=== PATIENT | male | born 1940 | race Caucasian/White ===

== ENCOUNTER → 2016-09-12 | Outpatient (CLI) | payer MEDICARE ==
[2016-09-12 16:11] LABS: Blood Urea Nitrogen 19 mg/dL (9-20); Non-African American GFR(MDRD) >60 (>60 ml/min/1.73 sqM)
== END | disposition home or self-care (01) ==
LOC: LABWHC1 15:44
PROVIDERS: ATTEND Psychiatry & Neurology Pain Medicine
DX: G25.0 Essential tremor (principal)
CPT/HCPCS: 36415; 82565; 84520

== ENCOUNTER → 2016-09-16 | Outpatient (CLI) | payer MEDICARE ==
--- NOTE | 2016-09-16 07:36 | MR ---
EXAMINATION TYPE: MR brain wo/w con DATE OF EXAM: 09/16/2016 COMPARISON: NONE HISTORY: essential tremors CONTRAST: Performed utilizing 15 mL intravenous MultiHance gadolinium contrast. TECHNIQUE: Multiplanar, multiecho imaging on a 3.0 Nancy magnet is performed through the brain. Stud y is performed within 24 hours of arrival to the hospital. The craniovertebral junction is normal. The pituitary is normal. Diffusion-weighted imaging is performed. No abnormal hyperintensity is present to suggest an acute i ntracranial infarct or acute ischemic change. There are confluent periventricular white matter changes. Additional multiple punctate white matter c hanges are within the centrum semiovale. Findings are nonspecific. Differential could include but is not limited to microvascular ischemic change, Lyme disease, multiple sclerosis, vasculitis. Ventricles and sulci are appropriate for the patient age. There is tortuosity left vertebral artery. Normal vascular flow voids are within the intracranial cer ebral vasculature. Temporal lobes are symmetrical. IMPRESSIONS: 1. Confluent periventricular white matter changes, most likely on the basis of chronic white matter i schemic change.
== END | disposition home or self-care (01) ==
LOC: RADMRIMAIN 06:35
PROVIDERS: ATTEND Psychiatry & Neurology Pain Medicine
DX: R90.89 Other abnormal findings on diagnostic imaging of central nervous system (principal)
CPT/HCPCS: 70553; A9577

== ENCOUNTER → 2017-10-16 | Outpatient (CLI) | payer MEDICARE ==
--- NOTE | 2017-10-17 07:13 | US ---
EXAMINATION TYPE: US carotid duplex BILAT DATE OF EXAM: 10/16/2017 COMPARISON: NONE CLINICAL HISTORY: I65.29Occlusion and stenosis of unspecified caroti. No hx of TIA, HTN- controlled. High cholesterol. EXAM MEASUREMENTS: RIGHT: Peak Systolic Velocity (PSV) cm/sec ----- Right CCA: 87.7 ----- Right ICA: 77.0 ----- Right ECA: 107.4 ICA/CCA ratio: 0.9 RIGHT: End Diastole cm/sec ----- Right CCA: 24.9 ----- Right ICA: 21.9 ----- Right ECA: 14.1 LEFT: Peak Systolic Velocity (PSV) cm/sec ----- Left CCA: 88.8 ----- Left ICA: 69.8 ----- Left ECA: 64.5 ICA/CCA ratio: 0.8 LEFT: End Diastole cm/sec ----- Left CCA: 22.7 ----- Left ICA: 23.5 ----- Left ECA: 10.4 VERTEBRALS (direction of flow): Right Vertebral: Antegrade Left Vertebral: Antegrade Rhythm: Normal No elevated velocities or significant stenosis. Plaque seen in bilateral bulbs. Bilateral wall thic kening. IMPRESSION: Mild degree of grayscale atheromatous plaquing with no sonographically evident hemodynam ically significant stenosis within either visualized carotid arterial system.
== END | disposition home or self-care (01) ==
LOC: RADUSWWP 15:37
PROVIDERS: ATTEND Family Medicine
DX: I65.23 Occlusion and stenosis of bilateral carotid arteries (principal)
CPT/HCPCS: 93880

== ENCOUNTER → 2019-04-13 | Outpatient (CLI) | payer MEDICARE ==
[2019-04-13 12:09] LABS: African American GFR (CKD) >90 (>60 ml/min/1.73 sqM); Blood Urea Nitrogen 28 mg/dL (9-20); Non-African American GFR(CKD) 82 (>60 ml/min/1.73 sqM)
--- NOTE | 2019-04-13 13:42 | CT ---
EXAMINATION TYPE: CT abdomen pelvis w con DATE OF EXAM: 04/13/2019 COMPARISON: None HISTORY: Prostate cancer CT DLP: 934.7 mGycm Automated exposure control for dose reduction was used. CONTRAST: CT scan of the abdomen pelvis is performed with IV Contrast, patient injected with 100 mL of Isovue 3 00. FINDINGS- LUNG BASES-interlobular septal thickening suggestive of chronic interstitial lung disease. Pleural th ickening and calcification suggestive of pleural plaques and asbestos related disease. Heart is promi nent in size. Coronary artery calcifications noted.. LIVER/GB-liver is homogeneous. Postcholecystectomy clips are noted.. PANCREAS- No gross abnormality is seen. SPLEEN- No gross abnormality is seen. ADRENALS- No gross abnormality is seen. KIDNEYS/BLADDER-bilateral parapelvic renal cysts are seen with no hydronephrosis. Suspect there are 2 lower pole 3 mm nonobstructing left renal calculi.. BOWEL-bowel gas pattern nonspecific with no obstruction.. LYMPH NODES- No greater than 1cm abdominal or pelvic lymph nodes areappreciated. OSSEOUS STRUCTURES-hypertrophic and degenerative changes of the vertebral column. Arthropathy of the hips with benign-appearing cystic change involving the left hip. Postsurgical changes involving the l umbar spine. OTHER- prostate gland is enlarged and demonstrates calcifications. Atherosclerotic changes of the ao rta with localized ectasia just above the bifurcation measuring 2.6 cm. Bilateral fat-containing ingu inal hernias IMPRESSION- 1. Prostate appears mildly prominent with calcifications. No pathologic adenopathy or diagnostic evid ence to suggest metastases. 2. Nonobstructing lower pole left renal calculus. 3. Findings are compatible with asbestos related disease. 4. Dense coronary artery calcification and cardiomegaly
--- NOTE | 2019-04-14 08:43 | NM ---
"EXAMINATION TYPE: NM bone scan whole body DATE OF EXAM: 04/13/2019 COMPARISON: CT 04/13/2019 HISTORY: Prostate carcinoma Delayed whole-body scanning was performed following the injection of 23.9 mCi Tc 99m MDP. Images acq uired 3 hours post injection. FINDINGS: There is uptake along the lumbar spine which correlates with patient's postop change and degenerative disc disease. Uptake within the hands, wrists, elbows, shoulders, knees, ankles, feet, cervical spin e and sternoclavicular joints is likely degenerative. Soft tissue uptake is normal. No abnormal incre ased or decreased uptake to suggest metastatic disease. The uptake seen at the L1-2 level is intense and may be due to extensive hypertrophic changes seen at this level although there is some endplate irregularity noted on sagittal image [address] scan. D ifficult to exclude discitis. IMPRESSION: Metastatic disease is not evident. Correlate to exclude infection, discitis lumbar spine. A Yellow level critical message alert has been initiated for Tobias Wolfe MD via the [employer] | Critical Results System on 04/14/2019 8:40 AM. This message alert has been sent to [employer] via the preferences provided by the clinician for the receipt of Radiology Critical Findings. [employer] ID [id number]."
== END | disposition home or self-care (01) ==
LOC: RADNMMAIN 11:19
PROVIDERS: ATTEND Urology
DX: N20.0 Calculus of kidney (principal); N42.89 Other specified disorders of prostate; C61 Malignant neoplasm of prostate
CPT/HCPCS: 74177; 82565; 84520; 36415; 78306; A9503; Q9967 ×2

== ENCOUNTER 2019-05-31 09:26 | Day surgery (SDC) | payer MEDICARE ==
[2019-05-28 08:14] VITALS: BMI 26.6
--- NOTE | 2019-05-28 15:00 | P.HPIHPCON ---
History of Present Illness H&P Date: 05/28/19 Chief Complaint: prostate cancer Mr. Dean is 78 yo male with hx of prostate cancer. He elected to proceed with radiation therapy. He elected to proceed with SpaceOR placement. I discussed with risk of bleeding and infection. Also discussed risk of rectal and prostate injury. I discussed with him the risk from anesthesia which includes but not limited to heart attack, stroke, blood clots and even loss of life. He understood all the risk and agreed to proceed Consent for Procedure: I have explained the operation/procedure to the patient, including the risks, benefits, side effects, alternative therapies (including not receiving the proposed treatment or service), the likelihood of the patient achieving his/her goals, and potential recuperation problems for the procedure/sedation/analgesia, as well as any blood products, if indicated. I also explained to the patient the risks, benefits and side effects of the alternatives, as well as the risks related to not receiving the proposed procedure, care, treatment, or services. Past Medical History Past Medical History: GERD/Reflux, Hyperlipidemia, Hypertension Additional Past Medical History / Comment(s): skin cancer chest & back, squamous cell. prostate cancer, Hand tremors. History of Any Multi-Drug Resistant Organisms: None Reported Past Surgical History: Back Surgery, Cholecystectomy, Orthopedic Surgery, Tonsillectomy Additional Past Surgical History / Comment(s): back surgery lower back fusion, rt shoulder sx, colonoscopy, ankle sx, bunionectomy Past Anesthesia/Blood Transfusion Reactions: No Reported Reaction Smoking Status: Former smoker - Past Family History Father Family Medical History: Deep Vein Thrombosis (DVT) Brother(s) Family Medical History: Cancer, Deep Vein Thrombosis (DVT) Additional Family Medical History / Comment(s): prostate, lung Sister(s) Family Medical History: Cancer Additional Family Medical History / Comment(s): breast Medications and Allergies Home Medications Medication Instructions Recorded Confirmed Type Aspirin 81 mg PO DAILY 11/28/14 05/28/19 History Benazepril/Hydrochlorothiazide 1 each PO QAM 11/28/14 05/28/19 History [Benazepril-Hctz 20-25 mg Tab] Fenofibrate Nanocrystallized 145 mg PO QAM 11/28/14 05/28/19 History [Tricor] Omeprazole [PriLOSEC] 20 mg PO DAILY 11/28/14 05/28/19 History Multivitamins, Thera [Multivitamin 1 tab PO DAILY 10/21/18 05/28/19 History (formulary)] Primidone [Mysoline] 100 mg PO TID 10/21/18 05/28/19 History Brimonidine Tartrate/Timolol 1 drop LEFT EYE HS 05/28/19 05/28/19 History [Combigan 0.2%-0.5% Eye Drops] Megestrol Acetate 20 mg PO DAILY 05/28/19 05/28/19 History Tamsulosin [Flomax] 0.4 mg PO DAILY 05/28/19 05/28/19 History Allergies Allergy/AdvReac Type Severity Reaction Status Date / Time No Known Allergies Allergy Verified 05/28/19 08:04 Surgical - Exam - General well developed, well nourished, no distress - Respiratory normal expansion, normal respiratory effort - Abdomen Abdomen: soft, non tender, no distended - Psychiatric oriented to time, oriented to person, oriented to place, speech is normal Assessment and Plan Assessment: 78 yo male with hx of prostate cancer, he elected to proceed with SpaceOr placement prior to starting radiation Plan: OR for SpaceOR placement
[~2019-05-31 09:26] MED LIST: DEXAMETHASONE SOD PHOSPHATE 10 MG/ML 1 ML VIAL IV ONE; LACTATED RINGERS 1,000 ML IV SCH; MIDAZOLAM 2 MG/2 ML VIAL IV PRN; ONDANSETRON 4 MG/2 ML VIAL IVP ONE
[2019-05-31 10:00] VITALS: RESP 16; TEMP 97
[2019-05-31] MEDS ORDERED: SUCCINYLCHOLINE CHLORIDE 100 MG/5 ML SYR IV ONE (10:20)
[2019-05-31] MEDS ORDERED: ePHEDrine SULFATE/0.9% NACL/PF 50 MG/5 ML SYRINGE IV ONE (10:20)
[2019-05-31] MEDS ORDERED: MIDAZOLAM 2 MG/2 ML VIAL ONE (10:20)
[2019-05-31] MEDS ORDERED: LIDOCAINE 1% INJ 10MG/ML (20 ML MDV) ONE (10:20)
[2019-05-31] MEDS ORDERED: ROCURONIUM BROMIDE 10 MG/ML 5 ML VIAL IV ONE (10:20)
[2019-05-31] MEDS ORDERED: PROPOFOL 10 MG/ML 20 ML VIAL IV ONE (10:20)
[2019-05-31] MEDS ORDERED: fentaNYL (PF) 50 MCG/ML 2 ML AMP ONE (10:20)
[2019-05-31] MEDS ORDERED: LIDOCAINE 2% INJ 20 MG/ML SQ ONE (10:37)
--- NOTE | 2019-05-31 11:14 | P.OP ---
Date of Procedure: 05/31/19 Preoperative Diagnosis: prostate cancer Postoperative Diagnosis: same Procedure(s) Performed: Transrectal ultrasound, SpaceOR placement Implants: SpaceOR gel Surgeon: Robert Garza Pathology: none sent Condition: stable Disposition: PACU Indications for Procedure: Mr. Dean is 78 yo male with hx of prostate cancer. He elected to proceed with radiation therapy. He elected to proceed with SpaceOR placement. I discussed with risk of bleeding and infection. Also discussed risk of rectal and prostate injury. I discussed with him the risk from anesthesia which includes but not limited to heart attack, stroke, blood clots and even loss of life. He understood all the risk and agreed to proceed Description of Procedure: The patient was taken to the operating room and placed in the dorsolithotomy position, with his legs supported in Edison stirrups. The external genitalia was prepped and draped sterilely. The Mind-ray transrectal ultrasound probe was placed intrarectally. The prostate was imaged. The probe was then placed within the stabilizing stand. A spinal needle was advanced under ultrasonic guidance to the level of the urogenital diaphragm, and lidocaine was used to infiltrate the tissues as the needle was withdrawn. Next, the SpaceOAR needle was passed through the midline of the perineum, 1-2 cm anterior to the anal opening. The needle was slowly advanced under ultrasonic guidance until the needle tip was located within the fat plane between the prostate and rectum, at the level of the mid prostate gland. The needle was confirmed to be midline on the axial imaging. A small amount of normal saline was injected for hydrodissection. Next, the SpaceOAR components were mixed and loaded into the Y connector per protocol. The Y connector was then connected to the needle, and the components were injected slowly over a course of approxi mately 12 seconds. A total of 10 ml was injected. Significant distance was created between the prostate and rectum, as desired. It should be noted that at no point was there any concern of rectal perforation. The needle was withdrawn, as well as the transrectal ultrasound probe, and the procedure was terminated. The patient tolerated the procedure well and was taken to the recovery room in stable condition
[2019-05-31] MEDS: HYDROmorphone 0.5 MG/0.5 ML SYRINGE IVP PRN ×3 (11:15→11:38)
[2019-05-31 12:38] VITALS: BP 123/78; PULSE 64
== END 2019-05-31 13:12 | disposition home or self-care (01) ==
LOC: OR 09:26
PROVIDERS: ATTEND Urology
DX: C61 Malignant neoplasm of prostate (principal); K21.9 Gastro-esophageal reflux disease without esophagitis; E78.5 Hyperlipidemia, unspecified; Z85.828 Personal history of other malignant neoplasm of skin; R25.1 Tremor, unspecified; Z90.49 Acquired absence of other specified parts of digestive tract; Z98.1 Arthrodesis status; Z98.890 Other specified postprocedural states; Z87.891 Personal history of nicotine dependence; Z82.49 Family history of ischemic heart disease and other diseases of the circulatory system; Z80.42 Family history of malignant neoplasm of prostate; Z80.1 Family history of malignant neoplasm of trachea, bronchus and lung; Z80.3 Family history of malignant neoplasm of breast; Z79.82 Long term (current) use of aspirin; Z79.890 Hormone replacement therapy; Z79.899 Other long term (current) drug therapy
CPT/HCPCS: 55874; J2001 ×2; J2250; J1100; J0690; J2405; J3010; J0330; J2704; J1170

== ENCOUNTER → 2020-06-12 | Outpatient (CLI) | payer MEDICARE | END | disposition home or self-care (01) | LOC: LABWHC1 10:27 | PROVIDERS: ATTEND Radiology Radiation Oncology | DX: C61 Malignant neoplasm of prostate (principal); Z87.891 Personal history of nicotine dependence | CPT/HCPCS: 36415; 84153 ==

== ENCOUNTER → 2021-01-02 | Outpatient (CLI) | payer MEDICARE | END | disposition home or self-care (01) | LOC: LABWHC1 11:11 | PROVIDERS: ATTEND Radiology Radiation Oncology | DX: Z08 Encounter for follow-up examination after completed treatment for malignant neoplasm (principal); C61 Malignant neoplasm of prostate; Z85.46 Personal history of malignant neoplasm of prostate; Z87.891 Personal history of nicotine dependence | CPT/HCPCS: 36415; 84153 ==

== ENCOUNTER → 2021-03-22 | Outpatient (CLI) | payer MEDICARE ==
--- NOTE | 2021-03-22 10:43 | US ---
EXAMINATION TYPE: US carotid duplex BILAT DATE OF EXAM: 03/22/2021 COMPARISON: NONE CLINICAL HISTORY: R41.3 amnesia/ poor short term memory. EXAM MEASUREMENTS: RIGHT: Peak Systolic Velocity (PSV) cm/sec ----- Right CCA: 58.9 ----- Right ICA: 62.9 ----- Right ECA: 82.4 ICA/CCA ratio: 1.1 RIGHT: End Diastole cm/sec ----- Right CCA: 18.2 ----- Right ICA: 22.6 ----- Right ECA: 14.6 LEFT: Peak Systolic Velocity (PSV) cm/sec ----- Left CCA: 68.8 ----- Left ICA: 69.4 ----- Left ECA: 71.2 ICA/CCA ratio: 1.0 LEFT: End Diastole cm/sec ----- Left CCA: 17.5 ----- Left ICA: 28.4 ----- Left ECA: 13.6 VERTEBRALS (direction of flow): Right Vertebral: Antegrade Left Vertebral: Antegrade Rhythm: Normal No significant stenosis IMPRESSION: No evidence for hemodynamically significant stenosis. Criteria for Assigning % of Stenosis / Diameter reduction (Estimation based on the indirect measurements of the internal carotid artery velocities (ICA PSV). 1. Normal (no stenosis)=ICA PSV < 125 cm/s: ratio < 2.0: ICA EDV<40 cm/s. 2. Less than 50% stenosis=ICA PSV < 125 cm/s: ratio < 2.0: ICA EDV<40 cm/s. 3. 50 to 69% stenosis=ICA PSV of 125 to 230 cm/s: ration 2.0 ? 4.0: ICA EDV 40-100 cm/s. 4. Greater than 70% stenosis to near occlusion= ICA PSV > 230 cm/s: ratio > 4.0: ICA EDV > 100 cm/s. 5. Near occlusion= ICA PSV velocities may be low or undetectable: variable ratio and ICA EDV. 6. Total occlusion=unable to detect flow.
== END | disposition home or self-care (01) ==
LOC: RADUSWWP 09:33
PROVIDERS: ATTEND Family Medicine
DX: R41.3 Other amnesia (principal)
CPT/HCPCS: 93880

== ENCOUNTER → 2021-04-26 | Outpatient (CLI) | payer MEDICARE ==
--- NOTE | 2021-04-26 16:25 | CONS ---
CONSULTATION DATE OF SERVICE: 04/26/2021. 80-year-old gentleman has been evaluated in Sleep Center for obstructive sleep apnea- hypopnea syndrome and symptoms of excessive daytime sleepiness. HISTORY OF PRESENT ILLNESS/SLEEP WAKE EVALUATION: The patient is on treatment with CPAP for several years and continues to use CPAP equipment every night for the whole night. According to patient, there is no snoring while he is using his CPAP. SLEEP SCHEDULE: His sleep schedule from 11 p.m. to 7 a.m. FALLING ASLEEP: No problems with falling asleep. No TV in bedroom. DURING SLEEP: He usually sleeps on the side and back position. He wakes up from sleep 3 times with nocturia. No history of hypnagogic hallucinations, sleep paralysis or cataplexy. He would prefer to sleep about 10 hours. DURING THE DAY/SLEEP WAKE EVALUATION: Recently, he feels sleepiness during the day. [place] Sleepiness Scale now increased to 15 and he takes 3 naps during the day. PAST MEDICAL HISTORY: Positive for prostate CA, acid reflux, hyperlipidemia, hypertension. PAST SURGICAL HISTORY: Cholecystectomy, shoulder repair, 2 back surgeries. MEDICATIONS: Fenofibrate 145 mg once a day, omeprazole 20 mg once a day, benazepril 20-25 mg once a day, citalopram 20 mg once a day, aspirin 81 mg once a day, propranolol 80 mg once a day, calcium, D3 supplements. Tamsulosin 4 mg once a day and also Lupron injections every 6 months. FAMILY HISTORY: Hypertension, heart problems, stroke, sleep apnea, diabetes, mental illness. PHYSICAL EXAMINATION: GENERAL: gentleman without distress. BP 132/87, HR 64, RR 16, height 5 feet 8 inches, weight 221 pounds. Body mass index 33.6, temperature 98.8, oxygen saturation at room air 96%. Neck is 16-1/2 inches in circumference. Neck: Supple, no JVD. Thyroid is not palpable. LUNGS: Clear to percussion and to auscultation. Good air exchange. No wheezing or rhonchi. HEART: S1, S2 regular. No murmurs, gallops, or rubs. ABDOMEN: Slightly obese. Soft and nontender. Bowel sounds are present. No organomegaly appreciated. EXTREMITIES: No clubbing or cyanosis. LAUNDRY ROOM ATTENDANT: Awake, alert, and oriented X3. Cranial nerves 2 to 7 intact. There is no fasciculation or atrophy. noted. No focal deficits observed. I checked the patient's CPAP unit. It is in automatic regimen. Range of the pressure 4- 8. Average pressure 7.9. Usage is 30/30 nights, average 7.2 hours per night. Leak is 11 L/minute, which is in normal range. Apnea-hypopnea index is 4.8, which is borderline. IMPRESSION: 1. Obstructive sleep apnea-hypopnea syndrome. Patient demonstrated 100% compliance with treatment. Apnea-hypopnea index in normal range 4.8, but is borderline and the average positive air pressure on the maximal range of the pressure in the machine, possibly indicate that patient may feel better with higher pressure. 2. Mild obesity. 3. Sleepiness, [place] Sleepiness Scale increased to 15. Differential diagnosis should include additional diagnosis of hypersomnia. Sleepiness could be related to obstructive sleep apnea. Also previous sleep study was done as home sleep apnea test and there is a possibility of leg movements during the night. 4. Prostate cancer. 5. Acid reflux. 6. Hyperlipidemia. 7. Hypertension. 8. Status post cholecystectomy. 9. Status post back surgery x2. 10.Status post shoulder surgery. PLAN: 1. I changed regimen in the AutoPAP machine with change pressure to maximum level of 11. 2. Patient will continue to use CPAP equipment every night for the whole night. 3. Sleep hygiene with regular time in bed for 8 hours. 4. Watching and losing weight. 5. No driving if feeling sleepiness. 6. I will see patient for follow-up visit in 3 months. If he will continue to feel sleepiness during the day, we may consider MSLT for objective evaluation of symptoms of excessive sleepiness. Thank you very much for allowing me to participate in management of your patient. Sincerely, Asif Alfredo MD, PhD, FAASM Diplomat of [employer] Sleep Medicine Board of [employer] [facility] [place] [id number] / DEMETRIA: [id number] /
== END ==
LOC: SLEEP 14:41
PROVIDERS: ATTEND Internal Medicine
DX: G47.33 Obstructive sleep apnea (adult) (pediatric) (principal); E66.9 Obesity, unspecified; C61 Malignant neoplasm of prostate; K21.9 Gastro-esophageal reflux disease without esophagitis; E78.5 Hyperlipidemia, unspecified; I10 Essential (primary) hypertension; Z90.49 Acquired absence of other specified parts of digestive tract; Z98.890 Other specified postprocedural states; Z68.33 Body mass index [BMI] 33.0-33.9, adult; Z99.89 Dependence on other enabling machines and devices; Z79.899 Other long term (current) drug therapy; Z87.891 Personal history of nicotine dependence
CPT/HCPCS: 99211

== ENCOUNTER → 2021-08-15 | Outpatient (CLI) | payer MEDICARE ==
--- NOTE | 2021-08-16 14:46 | SFUN ---
SLEEP CENTER FOLLOW UP NOTE DATE OF SERVICE: 08/15/2021 This 80-year-old gentleman has been followed in Sleep Center for treatment of obstructive sleep apnea-hypopnea syndrome. The patient continues to use CPAP equipment every night, getting his CPAP supplies on time. He lost weight in the amount of about 12 pounds since previous visit. [place] Sleepiness Scale today is 11, which is slightly above normal. I checked his CPAP unit. Range of the pressure is 4 to 11, average pressure 9.8. Usage is 29/30 nights for more than 4 hours. Otherwise, he is using it every night. Average usage 6.4 hours per night, which is great compliance. Leak is 18 L/minute, which is borderline. Apnea-hypopnea index is 3.5, which is totally normal. MEDICATIONS: Omeprazole, benazepril, fenofibrate, topiramate, aspirin, probiotics. PHYSICAL EXAMINATION: GENERAL: Pleasant patient in no distress. VITAL SIGNS: BP 128/76, HR 69, RR 16, height 5 feet 9 inches, weight 209.2, temperature 97.6, oxygen saturation at room air 96%. HEENT: PERRLA, EOMI, evaluation of oropharynx showed tongue protrudes midline. NECK: Supple, no JVD. Thyroid is not palpable. LUNGS: Clear to percussion and to auscultation. Good air exchange. No wheezing or rhonchi. HEART: S1, S2 regular. No murmurs, gallops, or rubs. ABDOMEN: Slightly obese. EXTREMITIES: No clubbing or cyanosis. MANAGER MEDIA: Awake, alert, and oriented X3. Cranial nerves 2 to 7 intact. There is no fasciculation or atrophy. noted. No focal deficits observed. IMPRESSION: 1. Obstructive sleep apnea-hypopnea syndrome. Patient demonstrated 100% compliance with treatment, benefitting from treatment. Normal respiration after I changed the pressure during the previous visit. 2. History of prostate carcinoma. 3. Acid reflux. 4. Hypertension. 5. Hyperlipidemia. 6. Status post cholecystectomy. 7. Status post back surgery x2. 8. Status post shoulder surgery. PLAN: 1. Patient will continue to use PAP equipment every night for the whole night. 2. Sleep hygiene with regular time in bed for at least 7-1/2 to 8 hours. 3. Precautions related to driving. No driving if feeling sleepiness. 4. I will maintain all necessary prescription for PAP supplies including mask, tube, filters. 5. Watching weight. 6. Follow-up visit in 6 months or earlier if patient has any problems. Thank you very much for allowing me to participate in the management of your patient. Sincerely, Asif Alfredo MD, PhD, FAASM Diplomat of [employer] [employer] Sleep Medicine Board of [employer] Assistant Director [employer] [facility] [place] MMODL / IJN: [id number] /
== END ==
LOC: SLEEP 11:45
PROVIDERS: ATTEND Internal Medicine
DX: G47.33 Obstructive sleep apnea (adult) (pediatric) (principal); K21.9 Gastro-esophageal reflux disease without esophagitis; I10 Essential (primary) hypertension; E78.5 Hyperlipidemia, unspecified; Z90.49 Acquired absence of other specified parts of digestive tract; Z98.890 Other specified postprocedural states; Z85.46 Personal history of malignant neoplasm of prostate; Z99.89 Dependence on other enabling machines and devices

== ENCOUNTER → 2021-08-28 | Outpatient (CLI) | payer MEDICARE | LOC: CPPFTMAIN 09:25 | PROVIDERS: ATTEND Otolaryngology | DX: R05.9 Cough, unspecified (principal); Z87.891 Personal history of nicotine dependence | CPT/HCPCS: 94060; 94726; 94729 ==

== ENCOUNTER → 2021-11-29 | Outpatient (CLI) | payer MEDICARE ==
--- NOTE | 2021-11-30 11:42 | CT ---
EXAMINATION TYPE: CT chest wo con DATE OF EXAM: 11/29/2021 COMPARISON: Unavailable. HISTORY: Cough, asbestosis vs. blood pressure medication CT DLP: 629 mGycm, Automated exposure control for dose reduction was used. CONTRAST: Performed injected with 0 mL of Isovue 300. TECHNIQUE: Axial images were obtained at 5 mm thick sections. Reconstructed images are reviewed on [employer] computer in the coronal plane. FINDINGS: Portion of the thyroid visualized is normal. There is some pleural based calcification along the anterior lateral right upper lung field. Punctate pleural-based calcification medially in the anterior left lung. Series 3 image 24 this is near calci fied pleural plaque on the anterior left lung. Additional mid and lower lung field pleural calcificat ions are present. Findings are nonspecific but can be related to prior specificity exposure. No suspicious masses or nodules are identified. No enlarged mediastinal or hilar adenopathy is evident. The ascending aorta diameter at the level o f the main pulmonary artery is 3.9 cm. The main pulmonary artery diameter at the bifurcation is 2.6 cm. Coronary artery calcifications present. Limited CT sections are obtained through the upper abdomen. There is some moderate fatty infiltration of liver. Gallbladder is surgically absent. IMPRESSIONS: 1. Bilateral pleural calcified plaques can be compatible with prior asbestos exposure. 2. No additional suspicious findings.
== END | disposition home or self-care (01) ==
LOC: RADCTMAIN 10:58
PROVIDERS: ATTEND Internal Medicine Critical Care Medicine
DX: J92.9 Pleural plaque without asbestos (principal)
CPT/HCPCS: 71250

== ENCOUNTER → 2022-01-14 | Outpatient (CLI) | payer MEDICARE | END | disposition home or self-care (01) | LOC: LABWHC1 09:46 | PROVIDERS: ATTEND Urology | DX: C61 Malignant neoplasm of prostate (principal) | CPT/HCPCS: 36415; 84153 ==

== ENCOUNTER → 2022-03-20 | Outpatient (CLI) | payer MEDICARE ==
--- NOTE | 2022-03-20 11:45 | XR ---
EXAMINATION TYPE: XR KUB DATE OF EXAM: 03/20/2022 10:27 AM INDICATION: Patient age:Male; 81 years old; Reason for study: N20.0 CALCULUS OF KIDNEY, N20.1 CALCULUS OF URETER; COMPARISON: Spine radiograph 12/15/2013, CT 04/13/2019 TECHNIQUE: One radiographic view of the abdomen was obtained. FINDINGS: No evidence for renal calculus. Multiple calcifications project over the pelvis. Surgical c lips noted in the right upper quadrant and in the right pelvis. The bowel gas pattern is nonspecific without dilated loops of small or large bowel. Extensive surgical changes to the spine. Hardware appe ars intact. IMPRESSION: 1. Pelvic phleboliths without evidence for renal calculus. 2. Nonspecific bowel gas pattern without radiographic evidence for acute process.
[2022-03-20 14:44] LABS: HCT 40.4 % (39.6-50.0); MCH 27.7 pg (27.0-32.0); MCHC 32.2 g/dL (32.0-37.0); Mean Platelet Volume 10.9 fL (9.5-12.2); NRBC Per 100 WBC 0 /100 WBCS (0.0-0.0); Platelet Count 270 X 10*3/uL (140-440); RDW 14.8 % (11.5-14.5); WBC 9.65 X 10*3/uL (4.50-10.00)
[2022-03-20 15:04] LABS: ALT 65 U/L (10-49); AST 43 U/L (14-35); African American GFR (CKD) 39.2 (60.0-200.0); Albumin 4.3 g/dL (3.8-4.9); Albumin/Globulin Ratio 1.91 (1.60-3.17); Alkaline Phosphatase 87 U/L (41-126); BUN/Creat Ratio 19.51 Ratio (12.00-20.00); Blood Urea Nitrogen 35.7 mg/dL (9.0-27.0); Calcium 9.9 mg/dL (8.7-10.3); Chloride 101 mmol/L (96-109); Globulin 2.2 g/dL (1.6-3.3); Glucose 163 mg/dL (70-110); Non-African American GFR(CKD) 33.8 (60.0-200.0); Potassium 3.8 mmol/L (3.5-5.5); Sodium 138 mmol/L (135-145); Total Protein 6.5 g/dL (6.2-8.2)
[2022-03-20 15:06] LABS: Prostate Specific Antigen <0.01 ng/mL (0.00-6.50); Testosterone <2.50 ng/mL (86.98-780.10)
== END | disposition home or self-care (01) ==
LOC: RADXRMAIN 10:18
PROVIDERS: ATTEND Urology
DX: N20.2 Calculus of kidney with calculus of ureter (principal)
CPT/HCPCS: 74018; 80053; 84153; 84403; 85027

== ENCOUNTER → 2022-03-27 | Outpatient (CLI) | payer MEDICARE ==
--- NOTE | 2022-03-27 14:21 | USB ---
Reason for Exam: Clinical finding. Technique: Method: Whole Breast Handheld. Findings: The whole breast of the right breast, the axilla of the right breast and the retroareolar of the right breast were scanned. There is a benign-appearing distribution of parenchymal tissue in the subareolar right breast. This is asymmetric with the left breast. Findings appear to be related to gynecomastia. Follow-up ultrasound in 6 months is recommended. Earlier exam can be performed for changing clinical findings. Overall Assessment: Probably benign, BI-RAD 3 Management: Diagnostic Breast Ultrasound of the right breast in 6 months. A clinical breast exam by your physician is recommended on an annual basis and results should be correlated with mammographic findings. This exam should not preclude additional follow-up of suspicious palpable abnormalities. Results were given to the patient verbally at the time of exam. Electronically signed and approved by: Antwon Sloan D.O. Radiologis
== END | disposition home or self-care (01) ==
LOC: RADUSWWP 13:14
PROVIDERS: ATTEND Family Medicine
DX: N63.10 Unspecified lump in the right breast, unspecified quadrant (principal)

== ENCOUNTER → 2022-03-27 | Outpatient (CLI) | payer MEDICARE ==
--- NOTE | 2022-03-27 15:10 | CT ---
EXAMINATION TYPE: CT abdomen pelvis wo con DATE OF EXAM: 03/27/2022 COMPARISON: 04/13/2019 HISTORY: 81-year-old male left flank pain, N20.0 calculus of kidney N20.[address] DLP: 776.6 mGycm. Automated exposure control for dose reduction was used. TECHNIQUE: Contiguous axial scanning of the abdomen and pelvis without IV contrast. Coronal and sagit jr reconstructions performed. FINDINGS: r heart normal size without pericardial effusion. Three-vessel coronary artery calcifications are pre sent in remarkable for coronary artery disease. Ectatic ascending aorta at 3.8 cm. 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 There is mild interstitial fibrosis in the lower lungs without jose honeycombing. Liver mildly enlarged at 19.9 cm. There is diffuse low-attenuation. Spleen borderline in size at 13.7 cm. Cholecystectomy clips. Adrenal glands, pancreas show no gross abnormality by noncontrast CT. There a few punctate nonobstructive 3 mm and smaller right lower pole renal calculi. Small parapelvic cysts are suggested in the right kidney measuring up to 1.2 cm. Additional parapelvic cysts left kidney. A few calcifications measuring up to 6 mm are present in the left kidney along with moderate hydronephrosis and mild hydroureter. There is a 7 mm stone within th e mid to distal third left ureter. Additionally, there appears to be a 4 mm calculus at the right ureteral orifice. No dilated small bowel, free fluid, or free air. No mesenteric or retroperitoneal lymphadenopathy. Normal appendix. Scattered mild stool. Sigmoid diverticulosis without pericolic inflammatory change. Moderate prostatic calcifications abdominal aorta and iliac arteries. 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 Mild circumferential bladder wall thickening. Prostate gland mildly prominent at 4.2 cm wide with chitra e central calcifications. 3. Phlebolith are noted. No abnormal fluid collection in the pelvis or pelvic lymphadenopathy. Bones: Moderate degenerative change at the hips. Extensive previous posterior and interbody lumbar fu trudy with corresponding laminectomies. Advanced degenerative disc disease above the fusion at L1-L2 w ith grade 1 retrolisthesis. IMPRESSION: 1. A 7 mm stone at the junction of the mid to distal third left ureter with moderate obstructive uro elder. 2. A 4 mm stone at the right ureteral orifice but without any significant hydronephrosis. 3. Additional nonobstructive bilateral renal calculi measuring up to 6 mm. 4. Mild hepatomegaly with hepatic steatosis. As best as related pleural disease. Corresponding mild interstitial fibrosis. 5. Sigmoid diverticulosis without acute diverticulitis. 6. Distal AAA at 3.1 cm versus 3.0 cm on 04/13/2019.
== END | disposition home or self-care (01) ==
LOC: RADCTMAIN 12:46
PROVIDERS: ATTEND Urology
DX: N20.2 Calculus of kidney with calculus of ureter (principal); K76.0 Fatty (change of) liver, not elsewhere classified; R16.0 Hepatomegaly, not elsewhere classified; K57.30 Diverticulosis of large intestine without perforation or abscess without bleeding; I71.40 Abdominal aortic aneurysm, without rupture, unspecified
CPT/HCPCS: 74176

== ENCOUNTER → 2022-04-11 | Outpatient (CLI) | payer MEDICARE ==
--- NOTE | 2022-04-11 12:08 | XR ---
EXAMINATION TYPE: XR KUB DATE OF EXAM: 04/11/2022 COMPARISON: 03/20/2022 HISTORY: Left flank pain TECHNIQUE: One view abdominal series FINDINGS: The osseous structures are intact. The bowel gas pattern is nonspecific. Postsurgical changes lumbar spine. Surgical change right upper quadrant. Arthropathy of the hips and calcifications in the pelvi s likely vascular. There is an irregular density along the right lung base. There is a punctate calcification overlying mid pole left kidney measuring 2 mm and lower pole right kidney measuring 2 mm. IMPRESSION: 1. Punctate single bilateral 2 mm renal calculus. 2. Irregular density within the right lower lobe may correspond to pleural plaques seen by recent CT of the abdomen which included the lower lung jansen. Recommend follow-up chest x-ray
== END | disposition home or self-care (01) ==
LOC: RADXRMAIN 11:38
PROVIDERS: ATTEND Urology
DX: N20.0 Calculus of kidney (principal); J98.4 Other disorders of lung
CPT/HCPCS: 74018

== ENCOUNTER → 2022-04-19 | Outpatient (CLI) | payer MEDICARE ==
[2022-04-19 22:59] LABS: Basophils # (A) 0.04 X 10*3/uL (0.00-0.10); Basophils % (A) 0.6 %; Eosinophils # (A) 0.19 X 10*3/uL (0.04-0.35); HCT 38.2 % (39.6-50.0); HGB 12.2 g/dL (13.0-17.0); Immature Grans, Automated 0.6 %; Lymphocytes # (A) 0.99 X 10*3/uL (0.90-5.00); Lymphocytes % (A) 15.4 %; MCH 27.8 pg (27.0-32.0); MCHC 31.9 g/dL (32.0-37.0); Mean Platelet Volume 10.7 fL (9.5-12.2); Monocytes # (A) 0.55 X 10*3/uL (0.20-1.00); Monocytes % (A) 8.6 %; NRBC Per 100 WBC 0 /100 WBCS (0.0-0.0); Neutrophils # (A) 4.61 X 10*3/uL (1.80-7.70); Neutrophils % (A) 71.8 %; Platelet Count 262 X 10*3/uL (140-440); RBC 4.39 X 10*6/uL (4.40-5.60); RDW 15.2 % (11.5-14.5); WBC 6.42 X 10*3/uL (4.50-10.00)
[2022-04-19 23:08] LABS: African American GFR (CKD) 48.7 (60.0-200.0); Anion Gap 10.9 mmol/L (10.00-18.00); BUN/Creat Ratio 16.67 Ratio (12.00-20.00); Blood Urea Nitrogen 25.5 mg/dL (9.0-27.0); Carbon Dioxide 24.8 mmol/L (20.0-27.5); Potassium 4.5 mmol/L (3.5-5.5)
[2022-04-19 23:16] LABS: Appearance,Urine Clear (Clear); Bilirubin,Urine Negative (Negative); Blood,Urine Large (Negative); Color,Urine Yellow (Yellow); Ketones,Urine Negative (Negative); Nitrite,Urine Negative (Negative); Specific Gravity,Urine 1.014 (1.001-1.030); Urobilinogen,Urine 0.2 (0.2,1.0)
[2022-04-19 23:30] LABS: Bacteria,Urine None Seen /HPF (None Seen)
== END | disposition home or self-care (01) ==
LOC: LABPAT 14:44
PROVIDERS: ATTEND Urology
DX: Z01.812 Encounter for preprocedural laboratory examination (principal); N20.1 Calculus of ureter; R31.29 Other microscopic hematuria
CPT/HCPCS: 80048; 81001; 85025; 87086

== ENCOUNTER → 2022-06-28 | Outpatient (CLI) | payer MEDICARE ==
--- NOTE | 2022-06-28 08:17 | MR ---
EXAMINATION TYPE: MR lumbar spine wo con DATE OF EXAM: 06/28/2022 COMPARISON: Prior MRI lumbar spine January 20, 2012 HISTORY: Low back pain, hx of fusion TECHNIQUE: Multiplanar, multisequence imaging of the lumbar spine is performed without IV contrast. FINDINGS: Sagittal images of the lumbar spine show vertebral body heights to remain satisfactory. The re is grade 1 retrolisthesis L1 on L2 and L5 on S1 redemonstrated. There is artifact from posterior i nterpedicular rods and screws L2-S1 levels on current study. There is moderate to severe disc space n arrowing L2-L3 through the L5-S1 levels. Disc space heights is satisfactory above the L2 level. The c onus medullaris is normal in position and signal ending mid L1 level. The bone marrow signal intensi ty is within normal limits. Axial images at T12-L1 level appear within normal limits. Axial images at L1-L2 level show spondylolisthesis and artifact from surgical change and metallic dis c material making evaluation suboptimal. Axial images at L2-L3 through the L5-S1 levels show artifact from surgical change. Spinal canal is gr ossly preserved. There is suboptimal evaluation of the bilateral neural foramina Paraspinal muscle bulk is maintained. IMPRESSION: Extensive surgical changes in the lumbar spine is now present making evaluation suboptima l. Alignment is stable. Spinal canal fairly well-preserved. Further details as discussed above.
== END | disposition home or self-care (01) ==
LOC: RADMRIMAIN 07:16
PROVIDERS: ATTEND Family Medicine
DX: M54.16 Radiculopathy, lumbar region (principal); Z98.1 Arthrodesis status
CPT/HCPCS: 72148

== ENCOUNTER → 2022-07-15 | Outpatient (CLI) | payer MEDICARE | END | disposition home or self-care (01) | LOC: LABWHC1 13:45 | PROVIDERS: ATTEND Urology | DX: C61 Malignant neoplasm of prostate (principal) | CPT/HCPCS: 36415; 84153 ==

== ENCOUNTER → 2022-08-12 | Outpatient (CLI) | payer MEDICARE ==
--- NOTE | 2022-08-12 11:57 | MM ---
Reason for Exam: Clinical finding. Baseline mammogram. Indicated Problems: Pain of the right side for 1 Year(s). Patient History: Sister had breast cancer. Prior Study Comparison: Patient's first Mammogram. No prior studies available for comparison. Tissue Density: The breast tissue is heterogeneously dense. This may lower the sensitivity of mammography. Findings: Analyzed By CAD. Asymmetric dense breast tissue on the right. Extensive flame-shaped dendritic subareolar tissue extending out to the periphery and posteriorly in the right breast. Findings suggestive of moderate asymmetric gynecomastia. No persisting mass or other discrete abnormality on the 3-D images. No suspicious microcalcifications are seen. Overall Assessment: Incomplete: need additional imaging evaluation, BI-RAD 0 Management: Diagnostic Breast Ultrasound of the right breast. Electronically signed and approved by: Cuca Salgado M.D. Radiologist
--- NOTE | 2022-08-12 12:00 | USB ---
Reason for Exam: Follow-up at short interval from prior study. Patient History: Sister had breast cancer. Technique: Method: Targeted. Findings: The axilla of the right breast and the retroareolar of the right breast were scanned. Subareolar ultrasound in additional scanning of the axilla. Comparison images to the contralateral side. There is flame-shaped subareolar gynecomastia demonstrated measuring 2.3 x 1 point by 2.5 cm. Similar but slightly smaller finding was present on 03/27/2022. No axillary lymphadenopathy or other solid or cystic lesion is seen. Overall Assessment: Benign, BI-RAD 2 Management: Clinical Management of the right breast in 1 year. For the moderate asymmetric gynecomastia. Correlate as to possible etiologies. Additional further clinical management of patient's right breast pain. Additional follow-up as clinically indicated. Results were given to the patient verbally at the time of exam. Electronically signed and approved by: Cuca Salgado M.D. Radiologist
== END | disposition home or self-care (01) ==
LOC: RADMAMWWP 10:55
PROVIDERS: ATTEND Family Medicine
DX: N63.10 Unspecified lump in the right breast, unspecified quadrant (principal); N64.4 Mastodynia; Z80.3 Family history of malignant neoplasm of breast
CPT/HCPCS: 77062; 77066

== ENCOUNTER → 2022-09-19 | Outpatient (CLI) | payer MEDICARE ==
--- NOTE | 2022-09-19 10:46 | P.GSHP ---
History of Present Illness H&P Date: 09/19/22 Chief Complaint: right breast pain Zander is an 82 year old white male seen in consultation for Dr. Tripathi regarding a mass and pain in his right breast. He had a bilateral mammogramo n 08-12-22 which showed an asymmetric density on the right followed by a right breast ultrasound. This was felt to be gynecomastia, and BIRAD 2. He does not feel any lumps in his breast. He is complaining of pain in his right breast with any pressure. The pain is only present with pressure. He states this started after an injury about 1 year ago. This started after injury to the breast related to a heavy object compressing this. He did not get cut. It got swollen after that occurred. He has had a history of prostate cancer. This was 3 years ago. This was treated with radiation and lupron shots which stopped 1 year ago. Patient has not started any new medications recently, since the breast pain started. He has not had any surgery on his chest wall or breast. He is not complaining of any testicular lumps or masses. Nicotine: Negative Caffeine: Patient drinks several cups of coffee per day chocolate: occasional Note Dr. Tripathi 07-22-22 reviewed Family history: sister: breast cancer brother: prostate cancer brother: lung cancer Surgical History: Multiple back surgeries including an L4 5 laminectomy Decompressive surgery due to lumbar stenosis Tumor from finger fifth digit removed right hand Ankle surgery Tonsillectomy Right shoulder arthroplasty Inguinal hernia repair Colonoscopy EGD Right carpal tunnel Bilateral cataracts surgery Right knee arthroscopic surgery Cholecystectomy TURP right knee replacement Medical History: History of prostate cancer no evidence of any disease at this time Type 2 diabetes High cholesterol Hypertension Chronic low back pain Anemia Social History: nicotine: stopped 40 years ago, used to smoke 2PPD alcohol: none drugs:none - Constitutional Constitutional: Reports sweats - EENT Eyes: bilateral as per HPI Ears: deny: decreased hearing, tinnitus Ears, nose, mouth and throat: Denies headache, Denies sore throat - Breasts Breasts: bilateral: as per HPI - Cardiovascular Cardiovascular: Reports shortness of breath - Respiratory Respiratory: Reports cough - Gastrointestinal Gastrointestinal: Reports diarrhea - Genitourinary (Female) Genitourinary: Reports as per HPI - Genitourinary (Male) Genitourinary: Denies dysuria, Denies hematuria - Musculoskeletal Musculoskeletal: Reports as per HPI - Integumentary Integumentary: Denies pruritus, Denies rash - Neurological Neurological: Denies numbness, Denies weakness - Psychiatric Psychiatric: Denies anxiety, Denies depression - Endocrine Endocrine: Reports as per HPI - Hematologic/Lymphatic Comment: none - Allergic/Immunologic Allergic/Immunologic: Reports as per HPI Past Medical History Past Medical History: GERD/Reflux, Hyperlipidemia, Hypertension Additional Past Medical History / Comment(s): skin cancer chest & back, squamous cell. prostate cancer, Hand tremors. History of Any Multi-Drug Resistant Organisms: None Reported Past Surgical History: Back Surgery, Cholecystectomy, Orthopedic Surgery, To nsillectomy Additional Past Surgical History / Comment(s): back surgery lower back fusion, rt shoulder sx, colonoscopy, ankle sx, bunionectomy Past Anesthesia/Blood Transfusion Reactions: No Reported Reaction Past Psychological History: No Psychological Hx Reported - Past Family History Father Family Medical History: Deep Vein Thrombosis (DVT) Brother(s) Family Medical History: Cancer, Deep Vein Thrombosis (DVT) Additional Family Medical History / Comment(s): prostate, lung Sister(s) Family Medical History: Cancer Additional Family Medical History / Comment(s): breast Medications and Allergies Home Medications Medication Instructions Recorded Confirmed Type Aspirin 81 mg PO DAILY 11/28/14 09/19/22 History Fenofibrate Nanocrystallized 145 mg PO QAM 11/28/14 09/19/22 History [Tricor] Omeprazole [PriLOSEC] 20 mg PO DAILY 11/28/14 09/19/22 History Multivitamins, Thera [Multivitamin 1 tab PO DAILY 10/21/18 09/19/22 History (formulary)] Brimonidine Tartrate/Timolol 1 drop LEFT EYE HS 05/28/19 09/19/22 History [Combigan 0.2%-0.5% Eye Drops] Citalopram Hydrobromide 20 mg PO DAILY 04/22/22 09/19/22 History [Citalopram HBr] Allergies Allergy/AdvReac Type Severity Reaction Status Date / Time No Known Allergies Allergy Verified 09/19/22 10:21 Surgical - Exam - General no distress - Eyes normal ocular movement - Neck trachea midline - Respiratory normal respiratory effort, clear to auscultation - Cardiovascular Rhythm: regular Heart Sounds: normal: S1, S2 - Abdomen Abdomen: soft, non tender, no guarding, no rigid, no rebound - Integumentary normal turgor - Neurologic no disoriented, no combative - Musculoskeletal normal gait - Psychiatric oriented to time, oriented to person, oriented to place, speech is normal, memory intact Breast Exam: Bilateral breast enlargement Palpation: Right breast: multipositional exam right breast is larger than left breast there is fullness behind the nipple areolar complex which is tender to palpation but no discrete dominant masses or nausea nodules of concern Right axilla: No adenopathy of concern Left breast: Multi-positional exam fibroglandular changes no discrete dominant masses or nodules of concern Left axilla: No adenopathy of concern Testicular exam no lumps masses or nodules of concern and right or left testicle Results Mammogram and ultrasound reviewed Assessment and Plan Assessment: Impression: Probable right breast gynecomastia greater than left side Mastodynia Plan: We have discussed ultrasound core biopsy of the right side to confirm that this is gynecomastia and the patient and his are in agreement We have discussed lifestyle modification stopping caffeine for the mastodynia I'll see the patient back after ultrasound-guided core biopsy of the right breast CC: Dr. Tripathi
== END ==
LOC: WWCWWP 09:53
PROVIDERS: ATTEND Surgery
DX: N64.4 Mastodynia (principal); K21.9 Gastro-esophageal reflux disease without esophagitis; E78.5 Hyperlipidemia, unspecified; I10 Essential (primary) hypertension; D64.9 Anemia, unspecified; G89.29 Other chronic pain; N64.89 Other specified disorders of breast; E11.9 Type 2 diabetes mellitus without complications; N62 Hypertrophy of breast; E78.00 Pure hypercholesterolemia, unspecified; Z85.46 Personal history of malignant neoplasm of prostate; Z85.828 Personal history of other malignant neoplasm of skin; Z90.79 Acquired absence of other genital organ(s); Z87.891 Personal history of nicotine dependence; Z80.3 Family history of malignant neoplasm of breast; Z90.49 Acquired absence of other specified parts of digestive tract; Z92.3 Personal history of irradiation; Z79.82 Long term (current) use of aspirin

== ENCOUNTER → 2022-10-07 | Outpatient (CLI) | payer MEDICARE ==
--- NOTE | 2022-10-07 11:11 | US ---
EXAMINATION TYPE: US venous doppler duplex LE DATE OF EXAM: 10/07/2022 10:57 AM COMPARISON: NONE CLINICAL INDICATION: Male, 82 years old with history of R60.0 edema; Bilateral leg swelling SIDE PERFORMED: Bilateral TECHNIQUE: The lower extremity deep venous system is examined utilizing real time linear array sonog [place] with graded compression, doppler sonography and color-flow sonography. VESSELS IMAGED: Common Femoral Vein Deep Femoral Vein Greater Saphenous Vein * Femoral Vein Popliteal Vein Small Saphenous Vein * Proximal Calf Veins (* superficial vessels) Right Leg: Appears negative for DVT Left Leg: Appears negative for DVT IMPRESSION: Grayscale, color doppler, spectral doppler imaging performed of the deep veins of the lo wer extremities. There is normal flow, compressibility, vascular waveforms.
== END | disposition home or self-care (01) ==
LOC: RADUSWWP 10:22
PROVIDERS: ATTEND Family Medicine
DX: R60.0 Localized edema (principal)
CPT/HCPCS: 93970

== ENCOUNTER → 2022-10-10 | Outpatient (CLI) | payer MEDICARE ==
--- NOTE | 2022-10-10 09:51 | P.PN ---
Subjective Progress Note Date: 10/10/22 Principal diagnosis: gynecomastia Zander is an 82 year old male status post core biopsy of the right breast on 10-04-22. Pathology revealed gynecomastia. The patient tolerated the procedure without difficulty. At this time he is doing well. Objective - Constitutional General appearance: Present: cooperative - EENT Eyes: Present: EOMI ENT: Present: hearing grossly normal - Neck Neck: Present: normal ROM - Integumentary Integumentary Comment(s): Biopsy site right breast mild ecchymosis No evidence of hematoma or infection Assessment and Plan Assessment: Impression: Core biopsy right breast compatible with gynecomastia Plan: Close surveillance patient will have repeat ultrasound in 6 months with examination at that time CC: Dr. Tripathi
[2022-10-10 09:52] VITALS: BP 120/73; PULSE 57; RESP 16; TEMP 98.8
== END ==
LOC: WWCWWP 09:35
PROVIDERS: ATTEND Surgery
DX: Z00.00 Encounter for general adult medical examination without abnormal findings (principal); N62 Hypertrophy of breast; Z87.891 Personal history of nicotine dependence

== ENCOUNTER → 2022-10-30 | Outpatient (CLI) | payer MEDICARE ==
--- NOTE | 2022-10-31 17:40 | CA ---
Transthoracic Echo Report Name: Zander Dean Age: 82 Gender: M : 1940 Exam Date: 10/30/2022 13:04 Exam Location: [facility] Ht (in): 68 Wt (lb): 200 Ordering Physician: Antwon Tripathi DO Attending/Referring Phys: Photograph Printer Danii Faye RDCS Procedure CPT: Indications: R06.09 Dyspnea Cardiac Hx: Technical Quality: Fair Contrast 1: Total Dose (mL): Contrast 2: Total Dose (mL): MEASUREMENTS (Male / Female) Normal Values 2D ECHO LV Diastolic Diameter PLAX 4.0 cm 4.2 - 5.9 / 3.9 - 5.3 cm LV Systolic Diameter PLAX 2.8 cm IVS Diastolic Thickness 1.5 cm 0.6 - 1.0 / 0.6 - 0.9 cm LVPW Diastolic Thickness 1.3 cm 0.6 - 1.0 / 0.6 - 0.9 cm LV Relative Wall Thickness 0.7 RV Internal Dim ED PLAX 3.1 cm LA Volume 39.3 cm??? 18 - 58 / 22 - 52 cm??? M-MODE Aortic Root Diameter MM 3.0 cm LA Systolic Diameter MM 3.7 cm LA Ao Ratio MM 1.3 AV Cusp Separation MM 1.6 cm DOPPLER AV Peak Velocity 156.4 cm/s AV Peak Gradient 9.8 mmHg AV Mean Velocity 115.6 cm/s AV Mean Gradient 5.8 mmHg AV Velocity Time Integral 31.2 cm LVOT Peak Velocity 106.3 cm/s LVOT Peak Gradient 4.5 mmHg LVOT Velocity Time Integral 23.4 cm MV Area PHT 2.3 cm??? Mitral E Point Velocity 64.1 cm/s Mitral A Point Velocity 90.4 cm/s Mitral E to A Ratio 0.7 MV Deceleration Time 332.4 ms MV E' Velocity 4.1 cm/s Mitral E to MV E' Ratio 15.8 TR Peak Velocity 274.7 cm/s TR Peak Gradient 30.2 mmHg Right Ventricular Systolic Press 34.1 mmHg FINDINGS Left Ventricle Sigmoid shaped septum. Left ventricular cavity size normal. Normal left ventricular systolic function with no obvious regional wall motion abnormalities. Left ventricular ejection fraction is estimated at 55-60 %. Right Ventricle Normal right ventricular size and function. Right ventricular systolic pressure within normal limits. Right Atrium Normal right atrial size. Left Atrium Normal left atrial size. Mitral Valve Structurally normal mitral valve. Mild mitral annular calcification. Trace mitral regurgitation. Aortic Valve No aortic valve stenosis or regurgitation. Tricuspid Valve Structurally normal tricuspid valve. Mild tricuspid regurgitation. Pulmonic Valve Trace pulmonic regurgitation. Pulmonic valve not well visualized. Pericardium No pericardial effusion. Aorta Normal size aortic root and proximal ascending aorta. CONCLUSIONS Left ventricular ejection fraction is estimated at 55-60 %. Sigmoid shaped septum. No obvious regional wall motion abnormalities. No significant valvular dysfunction No prior echo to compare within database Previewed by: Dr Omid Duffy (Electronically Signed) Final Date: 31 October 2022 17:40
== END | disposition home or self-care (01) ==
LOC: RADECHMAIN 13:03
PROVIDERS: ATTEND Family Medicine
DX: I08.1 Rheumatic disorders of both mitral and tricuspid valves (principal); R06.09 Other forms of dyspnea
CPT/HCPCS: 93306

== ENCOUNTER → 2023-01-14 | Outpatient (CLI) | payer MEDICARE | END | disposition home or self-care (01) | LOC: LABWHC1 12:47 | PROVIDERS: ATTEND Urology | DX: C61 Malignant neoplasm of prostate (principal) | CPT/HCPCS: 36415; 84153 ==

== ENCOUNTER → 2023-04-07 | Outpatient (CLI) | payer MEDICARE ==
--- NOTE | 2023-04-07 09:28 | USB ---
Reason for Exam: Follow-up at short interval from prior study. Patient History: 10/04/2022, Benign US biopsy breast VAD RT on the right side. Sister had breast cancer. Technique: Method: Targeted. Prior Study Comparison: 08/12/2022 Bilateral MG 3D diag mammo w/cad [facility], [facility]. 10/04/2022 Right MG diagnostic mammo RT wo CAD, [facility]. Findings: The axilla of the right breast and the retroareolar of the right breast were scanned. Targeted ultrasound subareolar right breast. Additional images of the axilla were obtained. In the subareolar region, redemonstrated irregular hypoechoic gynecomastia. This measures 2.1 x 2.1 x 0.9 cm and demonstrates an adjacent microclip. Previously measured up to 2.6 cm. No other solid or cystic lesion or axillary lymphadenopathy. Overall Assessment: Benign, BI-RAD 2 Management: Clinical Management of the right breast in 1 year. Benign gynecomastia. If a new palpable lump arises, the patient can be rescanned. Results were given to the patient verbally at the time of exam. Electronically signed and approved by: Cuca Salgado M.D. Radiologist
== END | disposition home or self-care (01) ==
LOC: RADUSWWP 09:00
PROVIDERS: ATTEND Surgery
DX: R92.8 Other abnormal and inconclusive findings on diagnostic imaging of breast (principal); Z80.3 Family history of malignant neoplasm of breast

== ENCOUNTER → 2023-04-10 | Outpatient (CLI) | payer MEDICARE ==
--- NOTE | 2023-04-10 09:15 | P.PN ---
Subjective Progress Note Date: 04/10/23 Principal diagnosis: Gynecomastia right breast right breast pain Zander is an 82 year old white male seen in consultation for Dr. Tripathi regarding a mass and pain in his right breast. He had a bilateral mammogramo n 08-12-22 which showed an asymmetric density on the right followed by a right breast ultrasound. This was felt to be gynecomastia, and BIRAD 2. He does not feel any lumps in his breast. He is complaining of pain in his right breast with any pressure. The pain is only present with pressure. He states this started after an injury about 1 year ago. This started after injury to the breast related to a heavy object compressing this. He did not get cut. It got swollen after that occurred. He has had a history of prostate cancer. This was 3 years ago. This was treated with radiation and lupron shots which stopped 1 year ago. Patient has not started any new medications recently, since the breast pain started. He has not had any surgery on his chest wall or breast. He is not complaining of any testicular lumps or masses. 04-10-23 The patient had an ultrasound core biopsy of the right breast and which revealed gynecomastia The patient had a right breast ultrasound on . This revealed irregular hypoechoic gynecomastia. This measured 2.1 x 2.1 cm which previously measured up to 2.6 cm. States that the area of concern in the right breast may have changed slightly. The patient himself states that he continues to have pain in the area. Nicotine: Negative Caffeine: Patient drinks several cups of coffee per day chocolate: occasional Note Dr. Tripathi 07-22-22 reviewed Family history: sister: breast cancer brother: prostate cancer brother: lung cancer Surgical History: Multiple back surgeries including an L4 5 laminectomy Decompressive surgery due to lumbar stenosis Tumor from finger fifth digit removed right hand Ankle surgery Tonsillectomy Right shoulder arthroplasty Inguinal hernia repair Colonoscopy EGD Right carpal tunnel Bilateral cataracts surgery Right knee arthroscopic surgery Cholecystectomy TURP right knee replacement Medical History: History of prostate cancer no evidence of any disease at this time Type 2 diabetes High cholesterol Hypertension Chronic low back pain Anemia Social History: nicotine: stopped 40 years ago, used to smoke 2PPD alcohol: none drugs:none - Constitutional Constitutional: Reports sweats - EENT Eyes: bilateral as per HPI Ears: deny: decreased hearing, tinnitus Ears, nose, mouth and throat: Denies headache, Denies sore throat - Breasts Breasts: bilateral: as per HPI - Cardiovascular Cardiovascular: Reports shortness of breath - Respiratory Respiratory: Reports cough - Gastrointestinal Gastrointestinal: Reports diarrhea - Genitourinary (Female) Genitourinary: Reports as per HPI - Genitourinary (Male) Genitourinary: Denies dysuria, Denies hematuria - Musculoskeletal Musculoskeletal: Reports as per HPI - Integumentary Integumentary: Denies pruritus, Denies rash - Neurological Neurological: Denies numbness, Denies weakness - Psychiatric Psychiatric: Denies anxiety, Denies depression - Endocrine Endocrine: Reports as per HPI - Hematologic/Lymphatic Comment: none - Allergic/Immunologic Allergic/Immunologic: Reports as per HPI Past Medical History Past Medical History: GERD/Reflux, Hyperlipidemia, Hypertension Additional Past Medical History / Comment(s): skin cancer chest & back, squamous cell. prostate cancer, Hand tremors. History of Any Multi-Drug Resistant Organisms: None Reported Past Surgical History: Back Surgery, Cholecystectomy, Orthopedic Surgery, Tonsillectomy Additional Past Surgical History / Comment(s): back surgery lower back fusion, rt shoulder sx, colonoscopy, ankle sx, bunionectomy Past Anesthesia/Blood Transfusion Reactions: No Reported Reaction Past Psychological History: No Psychological Hx Reported - Past Family History Father Family Medical History: Deep Vein Thrombosis (DVT) Brother(s) Family Medical History: Cancer, Deep Vein Thrombosis (DVT) Additional Family Medical History / Comment(s): prostate, lung Sister(s) Family Medical History: Cancer Additional Family Medical History / Comment(s): breast Medications and Allergies Home Medications Medication Instructions Recorded Confirmed Type Aspirin 81 mg PO DAILY 11/28/14 09/19/22 History Fenofibrate Nanocrystallized 145 mg PO QAM 11/28/14 09/19/22 History [Tricor] Omeprazole [PriLOSEC] 20 mg PO DAILY 11/28/14 09/19/22 History Multivitamins, Thera [Multivitamin 1 tab PO DAILY 10/21/18 09/19/22 History (formulary)] Brimonidine Tartrate/Timolol 1 drop LEFT EYE HS 05/28/19 09/19/22 History [Combigan 0.2%-0.5% Eye Drops] Citalopram Hydrobromide 20 mg PO DAILY 04/22/22 09/19/22 History [Citalopram HBr] Allergies Allergy/AdvReac Type Severity Reaction Status Date / Time No Known Allergies Allergy Verified 09/19/22 10:21 Objective - Vital Signs Vital signs: Vital Signs Temp 98.1 F 04/10/23 08:55 Pulse 60 04/10/23 08:55 Resp 17 04/10/23 08:55 BP 150/84 04/10/23 08:55 Pulse Ox 96 04/10/23 08:55 FiO2 Intake & Output 04/09/23 04/10/23 04/10/23 18:59 06:59 18:59 Weight 90.718 kg - Constitutional General appearance: Present: cooperative - EENT Eyes: Present: EOMI ENT: Present: hearing grossly normal - Neck Neck: Present: normal ROM - Respiratory Respiratory: bilateral: CTA - Cardiovascular Heart sounds: normal: S1, S2 - Gastrointestinal General gastrointestinal: Present: soft - Integumentary Integumentary: Present: normal turgor - Musculoskeletal Musculoskeletal: Present: gait normal - Psychiatric Psychiatric: Present: A&O x's 3, appropriate affect, intact judgment & insight - Additional findings Additional findings: Breast Exam: Bilateral breast enlargement Palpation: Right breast: multipositional exam right breast is larger than left breast there is fullness behind the nipple areolar complex which is tender to palpation but no discrete dominant masses or nausea nodules of concern Right axilla: No adenopathy of concern Left breast: Multi-positional exam fibroglandular changes no discrete dominant masses or nodules of concern Left axilla: No adenopathy of concern Assessment and Plan Assessment: Impression: right breast gynecomastia; tender [place] [id number] reveals the area in the right breast to be stable Plan: Repeat right breast ultrasound in 1 year with examination at that time Patient to follow up sooner any questions or concerns At this time the patient does not want any surgical intervention CC: Dr. Tripathi
[2023-04-10 09:18] VITALS: BP 150/84; PULSE 60; RESP 17; TEMP 98.1
== END ==
LOC: WWCWWP 08:44
PROVIDERS: ATTEND Surgery
DX: N62 Hypertrophy of breast (principal); N64.4 Mastodynia; N64.89 Other specified disorders of breast; E78.00 Pure hypercholesterolemia, unspecified; G89.29 Other chronic pain; I10 Essential (primary) hypertension; K21.9 Gastro-esophageal reflux disease without esophagitis; Z80.3 Family history of malignant neoplasm of breast; Z85.46 Personal history of malignant neoplasm of prostate; Z85.828 Personal history of other malignant neoplasm of skin; Z87.891 Personal history of nicotine dependence; Z92.3 Personal history of irradiation; Z79.82 Long term (current) use of aspirin

== ENCOUNTER → 2023-07-25 | Outpatient (CLI) | payer MEDICARE | END | disposition home or self-care (01) | LOC: LABWHC1 11:54 | PROVIDERS: ATTEND Urology | DX: C61 Malignant neoplasm of prostate (principal) | CPT/HCPCS: 36415; 84153 ==

== ENCOUNTER → 2023-10-13 | Outpatient (CLI) | payer MEDICARE ==
--- NOTE | 2023-10-13 14:40 | XR ---
EXAMINATION TYPE: XR KUB DATE OF EXAM: 10/13/2023 COMPARISON: NONE HISTORY: Pain TECHNIQUE: One view abdominal series FINDINGS: The osseous structures are intact. The bowel gas pattern is nonspecific. Postsurgical change or vert ebral column. There is bilateral hypertrophic hip arthropathy. Metallic clips seen in the pelvis. Numerous calcifications are likely vascular in the pelvis. Calcifi cations along the upper margin of the left sacrum were present on the prior exam and likely lie outsi de the tract. Hypertrophic SI joint arthropathy. Surgical clips in the gallbladder fossa. Right kidney: There is a lower pole right renal calculus measuring 5 mm. Left kidney: There are approximately 6 calcifications overlying the lower pole the left kidney the la rgest measuring 5 mm. IMPRESSION: 1. Bilateral nephrolithiasis.
== END | disposition home or self-care (01) ==
LOC: RADXRMAIN 14:11
PROVIDERS: ATTEND Urology
DX: N20.0 Calculus of kidney (principal); R31.1 Benign essential microscopic hematuria
CPT/HCPCS: 74018

== ENCOUNTER 2023-10-17 19:38 | Emergency (ER) | payer MEDICARE ==
[2023-10-17 20:14] VITALS: TEMP 99.5
[2023-10-17 20:48] LABS: Appearance,Urine Turbid (Clear); Bacteria,Urine Moderate /hpf; Bilirubin,Urine Negative (Negative); Blood,Urine Large (Negative); Color,Urine Yellow; Glucose,Urine (UA) Negative (Negative); Ketones,Urine Negative (Negative); Leukocyte Esterase,Urine Large (Negative); Mucus,Urine Occasional /hpf; Nitrite,Urine Positive (Negative); Protein,Urine 2+ (Negative); RBC,Urine 99 /hpf (0-5); Specific Gravity,Urine 1.017 (1.001-1.035); Urobilinogen,Urine <2.0 mg/dL (<2.0); WBC,Urine >182 /hpf (0-5)
[2023-10-17 20:55] LABS: Basophils % (A) 0 %; Eosinophils # (A) 0.2 k/uL (0-0.7); Eosinophils % (A) 2 %; HCT 42.4 % (39.0-53.0); HGB 14.1 gm/dL (13.0-17.5); Lymphocytes % (A) 10 %; MCH 29.2 pg (25.0-35.0); MCHC 33.2 g/dL (31.0-37.0); Mean Platelet Volume 7.4; Monocytes # (A) 0.6 k/uL (0-1.0); Monocytes % (A) 7 %; Neutrophils # (A) 7.5 k/uL (1.3-7.7); Neutrophils % (A) 80 %; Platelet Count 232 k/uL (150-450); RBC 4.82 m/uL (4.30-5.90); RDW 14.2 % (11.5-15.5); WBC 9.5 k/uL (3.8-10.6)
[2023-10-17 21:06] LABS: ALT 52 U/L (4-49); AST 46 U/L (17-59); African American GFR (CKD) 76 (>60 ml/min/1.73 sqM); Albumin 4.4 g/dL (3.5-5.0); Alkaline Phosphatase 80 U/L (38-126); Amylase 45 U/L (30-110); Anion Gap 7 mmol/L; Blood Urea Nitrogen 22 mg/dL (9-20); Calcium 9.5 mg/dL (8.4-10.2); Carbon Dioxide 23 mmol/L (22-30); Chloride 113 mmol/L (98-107); Glucose 152 mg/dL (74-99); Lipase 90 U/L (23-300); Non-African American GFR(CKD) 66 (>60 ml/min/1.73 sqM); Potassium 3.9 mmol/L (3.5-5.1); Sodium 143 mmol/L (137-145); Total Bilirubin 0.6 mg/dL (0.2-1.3); Total Protein 6.7 g/dL (6.3-8.2)
--- NOTE | 2023-10-17 21:26 | XR ---
EXAMINATION TYPE: XR KUB DATE OF EXAM: 10/17/2023 9:07 PM CLINICAL INDICATION:Male, 83 years old with history of abdominal pain; [facility] COMPARISON: None. TECHNIQUE: One radiographic view of the abdomen was obtained. FINDINGS: The bowel gas pattern is nonspecific without dilated loops of small or large bowel. There i s no evidence for organomegaly or pneumoperitoneum. The osseous structures are intact. No abnormal calcifications are present. Fecal material and gas are demonstrated throughout the colon and rectum. Changes of laminectomy and lumbar spine hardware fusion are noted. Numerous phleboliths in the pelvi s IMPRESSION: Nonspecific bowel gas pattern without radiographic evidence for acute process.
--- NOTE | 2023-10-17 21:38 | ED ---
Abdominal Pain HPI - General Chief Complaint: Abdominal Pain Stated Complaint: Kidney Stones,Urinary Issues Time Seen by Provider: 10/17/23 19:50 Source: patient, RN notes reviewed Mode of arrival: ambulatory Limitations: no limitations - History of Present Illness Initial Comments: This is an 83-year-old male with past medical history of nephrolithiasis and benign prostatic hyperplasia presents emergency department chief complaint of urinary retention and foul odor of urination. Patient states that over the past roughly 2 days he has had issues with completing emptying his bladder. Additionally states that his blood has been dark-colored and foul-smelling. Patient follows with urologist, Dr. Wolfe, where he was informed that he has bilateral nephrolithiasis. Currently, patient is denying abdominal pain, fever, chills, nausea, vomiting. Patient states that he was recently treated with a 30-day course of antibiotics for urinary tract infection completed roughly 1 week ago. Patient states that Dr. Wolfe's office is going to contact him on Friday to schedule a follow-up appointment. - Related Data Home Medications Medication Instructions Recorded Confirmed Aspirin 81 mg PO DAILY 11/28/14 04/10/23 Fenofibrate Nanocrystallized 145 mg PO QAM 11/28/14 04/10/23 [Tricor] Omeprazole [PriLOSEC] 20 mg PO DAILY 11/28/14 04/10/23 Multivitamins, Thera [Multivitamin 1 tab PO DAILY 10/21/18 04/10/23 (formulary)] Brimonidine Tartrate/Timolol 1 drop RIGHT EYE HS 05/28/19 04/10/23 [Combigan 0.2%-0.5% Eye Drops] Citalopram Hydrobromide 20 mg PO DAILY 04/22/22 04/10/23 [Citalopram HBr] Previous Rx's Medication Instructions Recorded Sulfamethox-Tmp 800-160Mg [Bactrim 1 each PO Q12HR #20 tab 10/17/23 Ds] Allergies Allergy/AdvReac Type Severity Reaction Status Date / Time No Known Allergies Allergy Verified 10/17/23 20:09 Review of Systems ROS Statement: Those systems with pertinent positive or pertinent negative responses have been documented in the HPI. ROS Other: All systems not noted in ROS Statement are negative. Past Medical History Past Medical History: GERD/Reflux, Hyperlipidemia, Hypertension Additional Past Medical History / Comment(s): skin cancer chest & back, squamous cell. prostate cancer, Hand tremors. History of Any Multi-Drug Resistant Organisms: None Reported Past Surgical History: Back Surgery, Cholecystectomy, Orthopedic Surgery, Tonsillectomy Additional Past Surgical History / Comment(s): back surgery lower back fusion, rt shoulder sx, colonoscopy, ankle sx, bunionectomy Past Anesthesia/Blood Transfusion Reactions: No Reported Reaction Past Psychological History: No Psychological Hx Reported Smoking Status: Former smoker Past Alcohol Use History: None Reported Past Drug Use History: None Reported - Past Family History Father Family Medical History: Deep Vein Thrombosis (DVT) Brother(s) Family Medical History: Cancer, Deep Vein Thrombosis (DVT) Additional Family Medical History / Comment(s): prostate, lung Sister(s) Family Medical History: Cancer Additional Family Medical History / Comment(s): breast General Exam Limitations: no limitations General appearance: alert, in no apparent distress Head exam: Present: atraumatic, normocephalic, normal inspection Eye exam: Present: normal appearance, PERRL, EOMI. Absent: scleral icterus, conjunctival injection, periorbital swelling ENT exam: Present: normal exam, mucous membranes moist Neck exam: Present: normal inspection. Absent: tenderness, meningismus, lymphadenopathy Respiratory exam: Present: normal lung sounds bilaterally. Absent: respiratory distress, wheezes, rales, rhonchi, stridor Cardiovascular Exam: Present: regular rate, normal rhythm, normal heart sounds (murmur). Absent: systolic murmur, diastolic murmur, rubs, gallop, clicks GI/Abdominal exam: Present: soft, tenderness (suprapubic), normal bowel sounds. Absent: distended, guarding, rebound, rigid Extremities exam: Present: normal inspection, full ROM, normal capillary refill. Absent: tenderness, pedal edema, joint swelling, calf tenderness Back exam: Present: normal inspection Neurological exam: Present: alert, oriented X3, CN II-XII intact Psychiatric exam: Present: normal affect, normal mood Skin exam: Present: warm, dry, intact, normal color. Absent: rash Course Vital Signs 10/17/23 10/17/23 10/17/23 20:10 22:06 23:39 Temperature 99.5 F Pulse Rate 84 71 74 Respiratory 18 20 18 Rate Blood Pressure 139/74 136/100 139/76 O2 Sat by Pulse 97 98 95 Oximetry Medical Decision Making - Medical Decision Making Was pt. sent in by a medical professional or institution (, [facility], [employer], urgent care, hospital, or fpc...) When possible be specific @ -No Did you speak to anyone other than the patient for history (EMS, parent, family, police, friend...)? What history was obtained from this source @ -No Did you review nursing and triage notes (agree or disagree)? Why? @ -I reviewed and agree with nursing and triage notes Were old charts reviewed (outside hosp., previous admission, EMS record, old EKG, old radiological studies, urgent care reports/EKG's, fpc records)? Report findings @ -reviewed the patient's x-ray KUB which revealed bilateral nephrolithiasis. Differential Diagnosis (chest pain, altered mental status, abdominal pain women, abdominal pain men, vaginal bleeding, weakness, fever, dyspnea, syncope, headache, dizziness, GI bleed, back pain, seizure, CVA, palpatations, mental health, musculoskeletal)? @ -Differential Abdominal Pain Men: Appendicitis, cholecystitis, diverticulosis, ischemic bowel, pancreatitis, hepatitis, UTI, gastroenteritis, AAA, incarcerated hernia, bowel obstruction, constipation, inflammatory bowel, hepatitis, peptic ulcer disease, splenic infarction, perforated viscus, testicular torsion, this is not meant to be an all-inclusive list EKG interpreted by me (3pts min.). @ -none X-rays interpreted by me (1pt min.). @ -XR KUB reveals a nonspecific bowel gas pattern without radiographic evidence for an acute process. CT interpreted by me (1pt min.). @ -CT of the abdomen pelvis without contrast reveals bilateral lower pole nonobstructing nephrolithiasis, indeterminate calcifications near the urinary bladder base, no findings highly suspected for symptoms. U/S interpreted by me (1pt. min.). @ -None done What testing was considered but not performed or refused? (CT, X-rays, U/S, labs)? Why? @ -None What meds were considered but not given or refused? Why? @ -None Did you discuss the management of the patient with other professionals (professionals i.e. , [facility], [employer], lab, RT, psych nurse, social worker assistant, manufacturing engineering manager, teacher, staff air tactical officer, caser up)? Give summary @ -No Was smoking cessation discussed for >3mins.? @ -No Was critical care preformed (if so, how long)? @ -No Were there social determinants of health that impacted care today? How? (Homelessness, low income, unemployed, alcoholism, drug addiction, tr ansportation, low edu. Level, literacy, decrease access to med. care, [facility], rehab)? @ -No Was there de-escalation of care discussed even if they declined (Discuss DNR or withdrawal of care, Hospice)? DNR status @ -No What co-morbidities impacted this encounter? (DM, HTN, Smoking, COPD, CAD, Cancer, CVA, ARF, Chemo, Hep., AIDS, mental health diagnosis, sleep apnea, morbid obesity)? @ -None Was patient admitted / discharged? Hospital course, mention meds given and route, prescriptions, significant lab abnormalities, going to OR and other pertinent info. @ -discharged. 83-year-old male with urinary retention and foul odor. On examination patient noted to have mild suprapubic tenderness. Vitals are stable, no signs of tachycardia or fever. Clinical signs of dehydration therefore he is provided with a liter fluid bolus and Toradol for pain relief pending labs and CT results. X-ray nonconcerning for acute process. She decision-maker the patient at bedside that there was no evidence of kidney stones on x-ray recommend that he be sent for a CT of the abdomen that is more sensitive to determine location and size of kidney stones, patient is in agreement with this. CBC and CMP unremarkable, urinalysis remarkable for infection including large blood, large leukocyte esterase, white blood cell white blood cell clumps. Patient's urine is sent for culture. Additionally, CT unremarkable for acute process, reveals bilateral nephrolithiasis of the lower poles. Patient is provided with a dose of antibiotics here and will be sent the prescription for urinary tract infection. Due to patient's complaints of urinary retention and decrease in urinary output and findings consistent with bladder calcifications, indwelling urinary catheter will be placed over the weekend until patient is able to follow-up with urology on Friday for further evaluation. Recommend the patient continue antibiotics and follow-up soon as possible next week with urologist for further evaluation. All questions answered at bedside and strict return parameters discussed with the patient he is verbalized understanding. Case discussed with Dr. Osman Undiagnosed new problem with uncertain prognosis? @ -No Drug Therapy requiring intensive monitoring for toxicity (Heparin, Nitro, In sulin, Cardizem)? @ -No Were any procedures done? @ -No Diagnosis/symptom? @ -urinary tract infection, nephrolithiasis of lower kidney poles Acute, or Chronic, or Acute on Chronic? @ -Acute Uncomplicated (without systemic symptoms) or Complicated (systemic symptoms)? @ -uncomplicated Side effects of treatment? @ -No Exacerbation, Progression, or Severe Exacerbation? @ -No Poses a threat to life or bodily function? How? (Chest pain, USA, PA, pneumonia, PE, COPD, DKA, ARF, appy, cholecystitis, CVA, Diverticulitis, Homicidal, Suicidal, threat to staff... and all critical care pts) @ -No - Lab Data Result diagrams: 10/17/23 20:41 10/17/23 20:41 Lab Results 10/17/23 10/17/23 10/17/23 Range/Units 20:17 20:41 20:41 WBC 9.5 (3.8-10.6) k/uL RBC 4.82 (4.30-5.90) m/uL Hgb 14.1 (13.0-17.5) gm/dL Hct 42.4 (39.0-53.0) % MCV 88.0 (80.0-100.0) fL MCH 29.2 (25.0-35.0) pg MCHC 33.2 (31.0-37.0) g/dL RDW 14.2 (11.5-15.5) % Plt Count 232 (150-450) k/uL MPV 7.4 Neutrophils % 80 % Lymphocytes % 10 % Monocytes % 7 % Eosinophils % 2 % Basophils % 0 % Neutrophils # 7.5 (1.3-7.7) k/uL Lymphocytes # 1.0 (1.0-4.8) k/uL Monocytes # 0.6 (0-1.0) k/uL Eosinophils # 0.2 (0-0.7) k/uL Basophils # 0.0 (0-0.2) k/uL Sodium 143 (137-145) mmol/L Potassium 3.9 (3.5-5.1) mmol/L Chloride 113 H (98-107) mmol/L Carbon Dioxide 23 (22-30) mmol/L Anion Gap 7 mmol/L BUN 22 H (9-20) mg/dL Creatinine 1.05 (0.66-1.25) mg/dL Est GFR (CKD-EPI)AfAm 76 (>60 ml/min/1.73 sqM) Est GFR (CKD-EPI)NonAf 66 (>60 ml/min/1.73 sqM) Glucose 152 H (74-99) mg/dL Plasma Lactic Acid Leonardo (0.7-2.0) mmol/L Calcium 9.5 (8.4-10.2) mg/dL Total Bilirubin 0.6 (0.2-1.3) mg/dL AST 46 (17-59) U/L ALT 52 H (4-49) U/L Alkaline Phosphatase 80 (38-126) U/L Total Protein 6.7 (6.3-8.2) g/dL Albumin 4.4 (3.5-5.0) g/dL Amylase 45 (30-110) U/L Lipase 90 (23-300) U/L Urine Color Yellow Urine Appearance Turbid (Clear) Urine pH 6.0 (5.0-8.0) Ur Specific [place] 1.017 (1.001-1.035) Urine Protein 2+ H (Negative) Urine Glucose (UA) Negative (Negative) Urine Ketones Negative (Negative) Urine Blood Large H (Negative) Urine Nitrite Positive (Negative) Urine Bilirubin Negative (Negative) Urine Urobilinogen <2.0 (<2.0) mg/dL Ur Leukocyte Esterase Large H (Negative) Urine RBC 99 H (0-5) /hpf Urine WBC >182 H (0-5) /hpf Urine WBC Clumps Many H (None) /hpf Urine Bacteria Moderate H (None) /hpf Urine Mucus Occasional H (None) /hpf 10/17/23 Range/Units 20:41 WBC (3.8-10.6) k/uL RBC (4.30-5.90) m/uL Hgb (13.0-17.5) gm/dL Hct (39.0-53.0) % MCV (80.0-100.0) fL MCH (25.0-35.0) pg MCHC (31.0-37.0) g/dL RDW (11.5-15.5) % Plt Count (150-450) k/uL MPV Neutrophils % % Lymphocytes % % Monocytes % % Eosinophils % % Basophils % % Neutrophils # (1.3-7.7) k/uL Lymphocytes # (1.0-4.8) k/uL Monocytes # (0-1.0) k/uL Eosinophils # (0-0.7) k/uL Basophils # (0-0.2) k/uL Sodium (137-145) mmol/L Potassium (3.5-5.1) mmol/L Chloride (98-107) mmol/L Carbon Dioxide (22-30) mmol/L Anion Gap mmol/L BUN (9-20) mg/dL Creatinine (0.66-1.25) mg/dL Est GFR (CKD-EPI)AfAm (>60 ml/min/1.73 sqM) Est GFR (CKD-EPI)NonAf (>60 ml/min/1.73 sqM) Glucose (74-99) mg/dL Plasma Lactic Acid Leonardo 1.4 (0.7-2.0) mmol/L Calcium (8.4-10.2) mg/dL Total Bilirubin (0.2-1.3) mg/dL AST (17-59) U/L ALT (4-49) U/L Alkaline Phosphatase (38-126) U/L Total Protein (6.3-8.2) g/dL Albumin (3.5-5.0) g/dL Amylase (30-110) U/L Lipase (23-300) U/L Urine Color Urine Appearance (Clear) Urine pH (5.0-8.0) Ur Specific [place] (1.001-1.035) Urine Protein (Negative) Urine Glucose (UA) (Negative) Urine Ketones (Negative) Urine Blood (Negative) Urine Nitrite (Negative) Urine Bilirubin (Negative) Urine Urobilinogen (<2.0) mg/dL Ur Leukocyte Esterase (Negative) Urine RBC (0-5) /hpf Urine WBC (0-5) /hpf Urine WBC Clumps (None) /hpf Urine Bacteria (None) /hpf Urine Mucus (None) /hpf Disposition Clinical Impression: UTI (urinary tract infection), Urinary retention Disposition: HOME SELF-CARE Condition: Good Instructions (If sedation given, give patient instructions): Urinary Retention in Men (ED), Urinary Tract Infection in Men (ED) Additional Instructions: Complete full course of antibiotics as prescribed. Return to the emergency department for any new or worsening symptoms. Recommend that you call urology on Friday to schedule an appointment for further evaluation. Prescriptions: Sulfamethox-Tmp 800-160Mg [Bactrim Ds] 1 each PO Q12HR #20 tab Is patient prescribed a controlled substance at d/c from ED?: No Referrals: Antwon Tripathi DO [Primary Care Provider] - 1-2 days Time of Disposition: 22:31
[2023-10-17] MEDS: SODIUM CHLORIDE 0.9% 1,000 ML IV STA (22:08)
--- NOTE | 2023-10-17 22:19 | CT ---
EXAMINATION TYPE: CT abdomen pelvis wo con CT DLP: 977.8 mGycm, Automated exposure control for dose reduction was used. DATE OF EXAM: 10/17/2023 10:05 PM COMPARISON: CT abdomen pelvis most recent from CLINICAL INDICATION:Male, 83 years old with history of hx kidney stones, urine retention; Hx of renal stones. Urine retention. TECHNIQUE: Axial CT abdomen pelvis wo con;Sagittal and coronal reformats were created on a separate workstation. Contrast used: mL of , (none if empty) Oral contrast used: without Oral Contrast (none if empty) FINDINGS: LOWER CHEST: Unremarkable ABDOMEN LIVER: Unremarkable GALLBLADDER AND BILE DUCTS: The gallbladder is surgically absent. Bile ducts are unremarkable. PANCREAS: Unremarkable. SPLEEN: Unremarkable. Bowel gas. ADRENAL GLANDS: Unremarkable. KIDNEYS AND URETERS: No evidence of hydronephrosis. Bilateral lower pole nonobstructing nephroliths. Parapelvic cysts are suspected. The ureters are unremarkable. PELVIS BLADDER: Indeterminate calcifications in the region of the prostate. Bladder interface. Uncertain if these are in the prostate or within the bladder. REPRODUCTIVE: Unremarkable. ABDOMEN & PELVIS STOMACH AND BOWEL: Appendicitis is not appreciated. No evidence of bowel obstruction. PERITONEUM/RETROPERITONEUM: No evidence of pneumoperitoneum or free fluid. VASCULATURE: No evidence of aortic aneurysm. MUSCULOSKELETAL: No acute osseous abnormalities LYMPH NODES: No gross evidence for lymphadenopathy. SOFT TISSUE/ABDOMINAL WALL: Unremarkable IMPRESSION: 1. Bilateral lower pole nonobstructing nephroliths. 2. Indeterminate calcifications near the urinary bladder base. 3. Cholecystectomy clips within gallbladder fossa. 4. No findings highly suspect for causing patient's symptoms.
[2023-10-17] MEDS: cefTRIAXone IN SWFI 1,000 MG/10 ML SYRINGE IVP STA (22:59)
[2023-10-17] MEDS: LIDOCAINE 2% URO-JET JELLY 5 ML KIT URETHRAL ONE (23:37)
[2023-10-17] MEDS: KETOROLAC 15 MG/ML 1 ML VIAL IVP STA (23:37)
[2023-10-17 23:39] VITALS: BP 139/76; PULSE 74; RESP 18
== END 2023-10-17 23:50 | disposition home or self-care (01) ==
LOC: EC 19:38
DX: N39.0 Urinary tract infection, site not specified (principal); N20.0 Calculus of kidney; Z87.891 Personal history of nicotine dependence; Z90.89 Acquired absence of other organs; Z90.49 Acquired absence of other specified parts of digestive tract
CPT/HCPCS: 36415; 80053; 82150; 83605; 83690; 85025; 81001; 87086; 87077; 87186; 74018; 74176; 99285; 96374; 96375; 96361; 51702; J0696; J1885

== ENCOUNTER → 2024-01-27 | Outpatient (CLI) | payer MEDICARE ==
[2024-01-27 20:38] LABS: Testosterone 26.7 ng/dL (86.98-780.10)
[2024-01-27 20:45] LABS: Prostate Specific Antigen 0.02 ng/mL (0.000-6.500)
== END | disposition home or self-care (01) ==
LOC: LABWHC1 14:30
PROVIDERS: ATTEND Radiology Radiation Oncology
DX: Z08 Encounter for follow-up examination after completed treatment for malignant neoplasm (principal); C61 Malignant neoplasm of prostate; Z87.891 Personal history of nicotine dependence
CPT/HCPCS: 36415; 84153; 84403

== ENCOUNTER → 2024-07-29 | Outpatient (CLI) | payer MEDICARE | END | disposition home or self-care (01) | LOC: LABWHC1 11:57 | PROVIDERS: ATTEND Urology | DX: C61 Malignant neoplasm of prostate (principal) | CPT/HCPCS: 36415; 84153 ==